=== PATIENT | male | born 1980 | race Two or more races ===

== ENCOUNTER 2016-11-17 17:02 | Emergency (ER) | payer MEDICAID, OTHER, SELFPAY ==
[~2016-11-17] VITALS: Ht 203.2 cm; Wt 83.9 kg
[2016-11-17] MEDS ORDERED: ONDANSETRON 4MG/2ML VIAL (J2405) IV ONE (18:00)
[2016-11-17] MEDS ORDERED: KETOROLAC 30 MG/ML VIAL (J1885) IV ONE (18:00)
[2016-11-17] MEDS ORDERED: NS 1,000 ML IV ONE (18:00)
[2016-11-17] MEDS ORDERED: PANTOPRAZOLE 40MG TAB (PROTONIX) PO ONE (18:00)
[2016-11-17] MEDS ORDERED: PANTOPRAZOLE 40MG INJ (PROTONIX) (C9113) IV ONE (18:30)
[2016-11-17 18:44] LABS: BASO % 0.2 % (0.0-1.0); EOS # 0.3 K/mm3 (0.0-0.50); EOS % 3.3 % (0.0-3.0); LARGE UNSTAINED CELL % 0.5 % (0.0-4.0); LYMPH # 0.4 K/mm3 (1.5-4.5); LYMPH % 4.3 % (24.0-44.0); MEAN CORPUSCULAR HEMOGLOBIN 32.7 pg (27.0-33.0); MEAN CORPUSCULAR VOLUME 96.1 fl (80.0-96.0); MONO # 0.2 K/mm3 (0.0-0.8); MONO % 2.5 % (0.0-5.0); NEUTROPHILS # 8.2 K/mm3 (1.8-7.7); NEUTROPHILS % 89.2 % (36.0-66.0); PLATELET COUNT, AUTOMATED 172 k/mm3 (150-450); WHITE BLOOD COUNT 9.2 K/mm3 (4.0-10.0)
[2016-11-17 19:14] LABS: ALBUMIN 4.4 GM/DL (3.2-5.2); ALBUMIN/GLOBULIN RATIO 1.42 (1.00-1.93); ALKALINE PHOSPHATASE 97 U/L (45-117); ALT/SGPT 190 U/L (12-78); ANION GAP 11 MEQ/L (8-16); AST/SGOT 100 U/L (15-37); BILIRUBIN,DIRECT 0.5 MG/DL (0.0-0.2); BILIRUBIN,TOTAL 1.9 MG/DL (0.2-1.0); BLOOD UREA NITROGEN 8 MG/DL (7-18); CALCIUM LEVEL 9.3 MG/DL (8.5-10.1); CARBON DIOXIDE LEVEL 25 MEQ/L (21-32); CHLORIDE LEVEL 101 MEQ/L (98-107); CREATININE FOR GFR 0.86 MG/DL (0.70-1.30); GLOMERULAR FILTRATION RATE > 60.0 (>60); GLUCOSE, FASTING 104 MG/DL (70-105); POTASSIUM SERUM 3.7 MEQ/L (3.5-5.1); SODIUM LEVEL 137 MEQ/L (136-145); TOTAL PROTEIN 7.5 GM/DL (6.4-8.2)
[2016-11-17] MEDS ORDERED: ZOFR4TAB3 PO (19:25)
[2016-11-17 19:44] VITALS: BP 145/71
== END 2016-11-17 19:47 | disposition home or self-care (01) ==
LOC: M ED 18:42
DX: K29.70 Gastritis, unspecified, without bleeding (principal); F10.20 Alcohol dependence, uncomplicated; Z87.891 Personal history of nicotine dependence; Z88.0 Allergy status to penicillin; Z87.09 Personal history of other diseases of the respiratory system
CPT/HCPCS: 80048; 80076; 81001; 83605; 83690; 85025; 96374; 96375; 99282; C9113; J1885; J2405

== ENCOUNTER → 2016-12-30 | Outpatient (CLI) | payer OTHER ==
[~2016-12-30] MED LIST: ZOFR4TAB3 PO
--- NOTE | 2016-12-31 02:29 | REP ---
Clinical: Lower back pain. Technique: AP, lateral, bilateral oblique, and coned-down views. Comparison: 08/27/2013. Findings: Alignment and lordosis maintained. Moderate degenerative disc osteophyte complex at the L3-4 level is appreciated including anterior spurring with endplate sclerosis and minimal disc space narrowing. Remainder examination appears relatively normal for age. No evidence for spondylolysis or spondylolisthesis. No acute fracture / compression injury or subluxation. Impression: Moderate degenerative disc osteophyte complex at the L3-4 level. Remainder examination appears relatively normal for age. If the patient remains symptomatic consider MRI for further investigation. Signed by Sony Lord MD 12/31/2016 02:20 A
== END ==
LOC: M RAD 08:47
PROVIDERS: ATTEND Physician Assistant
DX: M54.5 Low back pain (principal)

== ENCOUNTER 2017-12-07 20:45 | Inpatient (IN) | payer MEDICAID, OTHER, BC ==
[2017-12-07 21:32] LABS: HEMATOCRIT 37.8 % (42.0-52.0); HEMOGLOBIN 13.1 g/dl (13.5-17.5); MEAN CORPUSCULAR HEMOGLOBIN 31.8 pg (27.0-33.0); MEAN CORPUSCULAR HGB CONC 34.7 g/dl (32.0-36.5); MEAN CORPUSCULAR VOLUME 91.7 fl (80.0-96.0); PLATELET COUNT, AUTOMATED 184 10^3/uL (150-450); RED BLOOD COUNT 4.12 10^6/uL (4.30-6.10); RED CELL DISTRIBUTION WIDTH 12.7 % (11.5-14.5); WHITE BLOOD COUNT 6.8 10^3/uL (4.0-10.0)
[2017-12-07 22:14] LABS: ACETAMINOPHEN LEVEL < 2.0 UG/ML (10.0-30.0); ALBUMIN 4.2 GM/DL (3.2-5.2); ALBUMIN/GLOBULIN RATIO 1.35 (1.00-1.93); ALKALINE PHOSPHATASE 83 U/L (45-117); ALT/SGPT 186 U/L (12-78); ANION GAP 11 MEQ/L (8-16); AST/SGOT 117 U/L (7-37); BILIRUBIN,DIRECT 0.2 MG/DL (0.0-0.2); BILIRUBIN,TOTAL 0.8 MG/DL (0.2-1.0); BLOOD UREA NITROGEN 5 MG/DL (7-18); CALCIUM LEVEL 8.3 MG/DL (8.5-10.1); CARBON DIOXIDE LEVEL 25 MEQ/L (21-32); CHLORIDE LEVEL 101 MEQ/L (98-107); GLOMERULAR FILTRATION RATE > 60.0 (>60); GLUCOSE, FASTING 84 MG/DL (70-100); POTASSIUM SERUM 3.6 MEQ/L (3.5-5.1); SALICYLATE LEVEL < 1.7 MG/DL (5.0-30.0); SODIUM LEVEL 137 MEQ/L (136-145); TOTAL PROTEIN 7.3 GM/DL (6.4-8.2)
[2017-12-08] MEDS: OXAZEPAM 15 MG CAP PO (04:59)
[2017-12-08 05:05] LABS: AMPHETAMINES LEVEL URINE NEGATIVE (NEGATIVE); BARBITURATES URINE NEGATIVE (NEGATIVE); BENZODIAZEPINES URINE NEGATIVE (NEGATIVE); CANNABINOIDS URINE POSITIVE (NEGATIVE); COCAINE METABOLITE URINE NEGATIVE (NEGATIVE); METHADONE URINE NEGATIVE (NEGATIVE); OPIATES URINE NEGATIVE (NEGATIVE); PHENCYCLIDINE URINE NEGATIVE (NEGATIVE)
[2017-12-08] MEDS ORDERED: LORazepam 2 MG TAB PO (09:30)
[2017-12-08] MEDS: FOLIC ACID 1 MG TAB PO (11:45)
[2017-12-08] MEDS: MULTIVITAMINS/MINERALS THERAP 1 TAB PO (11:46)
[2017-12-08] MEDS: THIAMINE 100 MG TAB PO ×2 (11:46→20:21)
[2017-12-08] MEDS: ARIPiprazole 2 MG TAB PO ×2 (13:07→20:21)
[2017-12-08] MEDS ORDERED: IBUPROFEN 400 MG TAB PO (14:45)
[2017-12-08] MEDS ORDERED: MOM 30ML SUSPENSION UDC PO (14:45)
[2017-12-08] MEDS ORDERED: MAALOX 30 ML SUSP *UDC PO (14:45)
[2017-12-08] MEDS: traZODone 50 MG TAB PO (20:21)
[2017-12-09 06:55] LABS: HEMATOCRIT 41.8 % (42.0-52.0); HEMOGLOBIN 14.2 g/dl (13.5-17.5); MEAN CORPUSCULAR HEMOGLOBIN 31.5 pg (27.0-33.0); MEAN CORPUSCULAR VOLUME 92.7 fl (80.0-96.0); PLATELET COUNT, AUTOMATED 190 10^3/uL (150-450); RED BLOOD COUNT 4.51 10^6/uL (4.30-6.10); RED CELL DISTRIBUTION WIDTH 12.6 % (11.5-14.5); WHITE BLOOD COUNT 7.2 10^3/uL (4.0-10.0)
[2017-12-09 07:19] LABS: ALBUMIN 4.1 GM/DL (3.2-5.2); ALBUMIN/GLOBULIN RATIO 1.41 (1.00-1.93); ALKALINE PHOSPHATASE 82 U/L (45-117); ALT/SGPT 172 U/L (12-78); ANION GAP 7 MEQ/L (8-16); AST/SGOT 98 U/L (7-37); BILIRUBIN,TOTAL 1.8 MG/DL (0.2-1.0); BLOOD UREA NITROGEN 8 MG/DL (7-18); CALCIUM LEVEL 9.1 MG/DL (8.5-10.1); CARBON DIOXIDE LEVEL 28 MEQ/L (21-32); CHLORIDE LEVEL 103 MEQ/L (98-107); CREATININE FOR GFR 0.78 MG/DL (0.70-1.30); FERRITIN 214 NG/ML (26-388); GLOMERULAR FILTRATION RATE > 60.0 (>60); GLUCOSE, FASTING 81 MG/DL (70-100); IRON (FE) 146 UG/DL (65-175); PERCENT SATURATION 47.1 % (19.7-50.0); SODIUM LEVEL 138 MEQ/L (136-145); TOTAL IRON BINDING CAPACITY 310 UG/DL (250-450)
[2017-12-09 09:26] LABS: HEPATITIS B SURFACE ANTIGEN NEGATIVE (NEGATIVE)
[2017-12-09 09:53] LABS: HEPATITIS C VIRUS ABY INDEX < 0.0 INDEX (<0.8)
[2017-12-09 09:54] LABS: HEPATITIS B CORE ANTIBODY IGM NEGATIVE (NEGATIVE)
[2017-12-09 09:55] LABS: HEPATITIS A ANTIBODY IGM NEGATIVE (NEGATIVE)
[2017-12-09] MEDS: FOLIC ACID 1 MG TAB PO (11:23)
[2017-12-09] MEDS: ARIPiprazole 2 MG TAB PO ×2 (11:23→20:13)
[2017-12-09] MEDS: THIAMINE 100 MG TAB PO ×2 (11:23→20:14)
[2017-12-09] MEDS: MULTIVITAMINS/MINERALS THERAP 1 TAB PO (11:23)
[2017-12-09 11:27] LABS: FOLATE 11.9 NG/ML (>5.4); VITAMIN B12 LEVEL 1044 PG/ML (247-911)
[2017-12-09] MEDS: traZODone 50 MG TAB PO (20:14)
[2017-12-10] MEDS: THIAMINE 100 MG TAB PO (08:01)
[2017-12-10] MEDS: ARIPiprazole 2 MG TAB PO (08:01)
[2017-12-10] MEDS: FOLIC ACID 1 MG TAB PO (08:01)
[2017-12-10] MEDS: MULTIVITAMINS/MINERALS THERAP 1 TAB PO (08:01)
== END 2017-12-10 08:05 | DRG 885 ==
LOC: M ED 20:45 → M ED INP 12-08 06:08 → M PSY 12-08 08:15
PROVIDERS: Psychiatry & Neurology Psychiatry
DX: F31.60 Bipolar disorder, current episode mixed, unspecified (principal); F41.1 Generalized anxiety disorder; F10.10 Alcohol abuse, uncomplicated; F12.10 Cannabis abuse, uncomplicated; D64.9 Anemia, unspecified; R94.5 Abnormal results of liver function studies; Z79.899 Other long term (current) drug therapy; Z88.0 Allergy status to penicillin

== ENCOUNTER 2017-12-12 16:26 | Emergency (ER) | payer OTHER, MEDICAID | END 2017-12-12 17:30 | disposition home or self-care (01) | LOC: M ED 16:26 | DX: Z76.0 Encounter for issue of repeat prescription (principal); F33.9 Major depressive disorder, recurrent, unspecified; Z88.0 Allergy status to penicillin; Z79.899 Other long term (current) drug therapy | CPT/HCPCS: 99282 ==

== ENCOUNTER 2018-02-26 22:18 | Inpatient (IN) | payer MEDICAID, OTHER ==
[2018-02-26 23:15] LABS: HEMATOCRIT 38.1 % (42.0-52.0); HEMOGLOBIN 13.2 g/dl (13.5-17.5); MEAN CORPUSCULAR HEMOGLOBIN 31.3 pg (27.0-33.0); MEAN CORPUSCULAR HGB CONC 34.6 g/dl (32.0-36.5); MEAN CORPUSCULAR VOLUME 90.3 fl (80.0-96.0); PLATELET COUNT, AUTOMATED 236 10^3/uL (150-450); RED BLOOD COUNT 4.22 10^6/uL (4.30-6.10); RED CELL DISTRIBUTION WIDTH 12.5 % (11.5-14.5); WHITE BLOOD COUNT 9.3 10^3/uL (4.0-10.0)
[2018-02-26 23:35] LABS: AMPHETAMINES LEVEL URINE NEGATIVE (NEGATIVE); BARBITURATES URINE NEGATIVE (NEGATIVE); BENZODIAZEPINES URINE NEGATIVE (NEGATIVE); CANNABINOIDS URINE POSITIVE (NEGATIVE); COCAINE METABOLITE URINE NEGATIVE (NEGATIVE); METHADONE URINE NEGATIVE (NEGATIVE); OPIATES URINE NEGATIVE (NEGATIVE); PHENCYCLIDINE URINE NEGATIVE (NEGATIVE)
[2018-02-26 23:44] LABS: ALBUMIN 4.2 GM/DL (3.2-5.2); ALBUMIN/GLOBULIN RATIO 1.24 (1.00-1.93); ALKALINE PHOSPHATASE 85 U/L (45-117); ALT/SGPT 51 U/L (12-78); ANION GAP 10 MEQ/L (8-16); AST/SGOT 40 U/L (7-37); BILIRUBIN,DIRECT 0.3 MG/DL (0.0-0.2); BILIRUBIN,TOTAL 1.1 MG/DL (0.2-1.0); BLOOD UREA NITROGEN 8 MG/DL (7-18); CALCIUM LEVEL 8.9 MG/DL (8.5-10.1); CARBON DIOXIDE LEVEL 25 MEQ/L (21-32); CHLORIDE LEVEL 103 MEQ/L (98-107); CREATININE FOR GFR 0.75 MG/DL (0.70-1.30); ETHYL ALCOHOL (ETHANOL) 0.249 % (0.000-0.010); GLOMERULAR FILTRATION RATE > 60.0 (>60); GLUCOSE, FASTING 90 MG/DL (70-100); POTASSIUM SERUM 3.9 MEQ/L (3.5-5.1); SALICYLATE LEVEL < 1.7 MG/DL (5.0-30.0); SODIUM LEVEL 138 MEQ/L (136-145); TOTAL PROTEIN 7.6 GM/DL (6.4-8.2)
[2018-02-26 23:49] LABS: ACETAMINOPHEN LEVEL < 2.0 UG/ML (10.0-30.0)
[2018-02-27] MEDS ORDERED: LORazepam 1 MG TAB PO (12:45)
[2018-02-27] MEDS ORDERED: LORazepam 2 MG TAB PO (12:45)
[2018-02-27] MEDS ORDERED: MOM 30ML SUSPENSION UDC PO (12:45)
[2018-02-27] MEDS ORDERED: MAALOX 30 ML SUSP *UDC PO (12:45)
[2018-02-27] MEDS: MULTIVITAMINS/MINERALS THERAP 1 TAB PO (16:51)
[2018-02-27] MEDS: THIAMINE 100 MG TAB PO ×2 (16:51→21:27)
[2018-02-27] MEDS: SERTRALINE HCL 50 MG TAB PO (16:51)
[2018-02-27] MEDS: FOLIC ACID 1 MG TAB PO (16:51)
[2018-02-27] MEDS: MIRTAZAPINE 15 MG TAB PO (21:27)
[2018-02-28] MEDS: MULTIVITAMINS/MINERALS THERAP 1 TAB PO (08:17)
[2018-02-28] MEDS: FOLIC ACID 1 MG TAB PO (08:17)
[2018-02-28] MEDS: SERTRALINE HCL 50 MG TAB PO (08:17)
[2018-02-28] MEDS: THIAMINE 100 MG TAB PO ×2 (08:18→20:18)
[2018-02-28] MEDS: NALTREXONE 50 MG TAB PO (09:52)
[2018-02-28] MEDS: QUEtiapine FUMARATE 50 MG TAB PO (20:18)
[2018-02-28] MEDS: MIRTAZAPINE 15 MG TAB PO (20:18)
[2018-02-28] MEDS: traZODone 50 MG TAB PO (22:07)
[2018-03-01 06:47] LABS: BASO # 0.1 10^3/uL (0.0-0.2); BASO % 0.8 % (0.0-1.0); EOS # 1.1 10^3/uL (0.0-0.50); EOS % 13.6 % (0.0-3.0); HEMATOCRIT 41.6 % (42.0-52.0); HEMOGLOBIN 14.1 g/dl (13.5-17.5); IMMATURE GRANULOCYTE % 0.3 % (0-3.0); LYMPH # 2.5 10^3/uL (1.5-4.5); MEAN CORPUSCULAR HEMOGLOBIN 31.1 pg (27.0-33.0); MEAN CORPUSCULAR HGB CONC 33.9 g/dl (32.0-36.5); MEAN CORPUSCULAR VOLUME 91.8 fl (80.0-96.0); MONO # 0.6 10^3/uL (0.0-0.8); MONO % 7.3 % (0.0-5.0); NEUTROPHILS # 3.8 10^3/uL (1.8-7.7); PLATELET COUNT, AUTOMATED 210 10^3/uL (150-450); RED BLOOD COUNT 4.53 10^6/uL (4.30-6.10); RED CELL DISTRIBUTION WIDTH 12.7 % (11.5-14.5)
[2018-03-01 07:20] LABS: ALBUMIN/GLOBULIN RATIO 1.25 (1.00-1.93); ALKALINE PHOSPHATASE 86 U/L (45-117); ALT/SGPT 44 U/L (12-78); ANION GAP 8 MEQ/L (8-16); AST/SGOT 33 U/L (7-37); BILIRUBIN,TOTAL 1.5 MG/DL (0.2-1.0); BLOOD UREA NITROGEN 9 MG/DL (7-18); CALCIUM LEVEL 9.5 MG/DL (8.5-10.1); CARBON DIOXIDE LEVEL 30 MEQ/L (21-32); CHLORIDE LEVEL 105 MEQ/L (98-107); CREATININE FOR GFR 0.88 MG/DL (0.70-1.30); GLOMERULAR FILTRATION RATE > 60.0 (>60); GLUCOSE, FASTING 100 MG/DL (70-100); POTASSIUM SERUM 4.3 MEQ/L (3.5-5.1); SODIUM LEVEL 143 MEQ/L (136-145); TOTAL PROTEIN 7.2 GM/DL (6.4-8.2)
[2018-03-01] MEDS: NALTREXONE 50 MG TAB PO (08:11)
[2018-03-01] MEDS: FOLIC ACID 1 MG TAB PO (08:11)
[2018-03-01] MEDS: MULTIVITAMINS/MINERALS THERAP 1 TAB PO (08:11)
[2018-03-01] MEDS: THIAMINE 100 MG TAB PO ×2 (08:11→20:36)
[2018-03-01] MEDS: SERTRALINE HCL 50 MG TAB PO (08:11)
[2018-03-01] MEDS: MIRTAZAPINE 15 MG TAB PO (20:35)
[2018-03-01] MEDS: QUEtiapine FUMARATE 50 MG TAB PO (20:36)
[2018-03-01] MEDS: traZODone 50 MG TAB PO (21:30)
[2018-03-02] MEDS: ACETAMINOPHEN TAB 650MG DOSE (2X325MG) PO (07:44)
[2018-03-02] MEDS: SERTRALINE HCL 50 MG TAB PO (08:06)
[2018-03-02] MEDS: NALTREXONE 50 MG TAB PO (08:06)
[2018-03-02] MEDS: MULTIVITAMINS/MINERALS THERAP 1 TAB PO (08:06)
[2018-03-02] MEDS: FOLIC ACID 1 MG TAB PO (08:06)
== END 2018-03-02 12:00 | disposition home or self-care (01) | DRG 885 ==
LOC: M PSY 02-28 15:35 → M ED 22:18 → M ED INP 02-27 12:34 → M PSY 02-27 15:30
DX: F33.1 Major depressive disorder, recurrent, moderate (principal); R45.851 Suicidal ideations; F41.1 Generalized anxiety disorder; F10.10 Alcohol abuse, uncomplicated; F12.90 Cannabis use, unspecified, uncomplicated; Z88.0 Allergy status to penicillin; D64.9 Anemia, unspecified

== ENCOUNTER 2018-03-02 22:47 | Emergency (ER) | payer OTHER, MEDICAID ==
[2018-03-03] MEDS: KETOROLAC 30 MG/ML VIAL (J1885) IV (00:43)
[2018-03-03 00:50] LABS: BASO # 0.1 10^3/uL (0.0-0.2); BASO % 0.5 % (0.0-1.0); EOS # 0.6 10^3/uL (0.0-0.50); EOS % 5.1 % (0.0-3.0); HEMATOCRIT 37.5 % (42.0-52.0); IMMATURE GRANULOCYTE % 0.4 % (0-3.0); LYMPH # 2.2 10^3/uL (1.5-4.5); LYMPH % 19.9 % (24.0-44.0); MEAN CORPUSCULAR HEMOGLOBIN 31.6 pg (27.0-33.0); MEAN CORPUSCULAR HGB CONC 34.7 g/dl (32.0-36.5); MONO # 0.8 10^3/uL (0.0-0.8); MONO % 7.4 % (0.0-5.0); NEUTROPHILS # 7.4 10^3/uL (1.8-7.7); NEUTROPHILS % 66.7 % (36.0-66.0); PLATELET COUNT, AUTOMATED 189 10^3/uL (150-450); RED BLOOD COUNT 4.12 10^6/uL (4.30-6.10); RED CELL DISTRIBUTION WIDTH 12.6 % (11.5-14.5); WHITE BLOOD COUNT 11.2 10^3/uL (4.0-10.0)
[2018-03-03 01:11] LABS: ANION GAP 5 MEQ/L (8-16); BLOOD UREA NITROGEN 6 MG/DL (7-18); CALCIUM LEVEL 9.4 MG/DL (8.5-10.1); CARBON DIOXIDE LEVEL 32 MEQ/L (21-32); CHLORIDE LEVEL 103 MEQ/L (98-107); CREATININE FOR GFR 0.91 MG/DL (0.70-1.30); GLOMERULAR FILTRATION RATE > 60.0 (>60); GLUCOSE, FASTING 89 MG/DL (70-100); POTASSIUM SERUM 3.4 MEQ/L (3.5-5.1); SODIUM LEVEL 140 MEQ/L (136-145)
[2018-03-03] MEDS: diphenhydrAMINE INJ 50MG/ML VIAL (J1200) IV (01:35)
[2018-03-03] MEDS: NS 1,000 ML IV (01:35)
== END 2018-03-03 02:25 | disposition home or self-care (01) ==
LOC: M ED 22:47
DX: R20.2 Paresthesia of skin (principal); R07.89 Other chest pain; T43.595A Adverse effect of other antipsychotics and neuroleptics, initial encounter; X58.XXXA Exposure to other specified factors, initial encounter; Y92.89 Other specified places as the place of occurrence of the external cause; I45.19 Other right bundle-branch block; K74.60 Unspecified cirrhosis of liver; Z79.899 Other long term (current) drug therapy; Z88.0 Allergy status to penicillin; Z87.891 Personal history of nicotine dependence
CPT/HCPCS: J1200

== ENCOUNTER 2019-08-16 02:49 | Emergency (ER) | payer OTHER, SELFPAY ==
[~2019-08-16] VITALS: Ht 203.2 cm; Wt 81.8 kg
[~2019-08-16 02:49] MED LIST changes: +ABIL1TAB13 PO; +ARIP1TAB4 PO; +FOLI1TAB11 PO; +IRON50TA PO; +MELA5TAB20 PO; +MIRT15TA3 PO; +NALT50TA4 PO; +QUET5TAB PO; +REME15TA PO; +SERT-141 PO; +SERT50TA29 PO; +THIA100TA PO; +TRAZ1TAB10 PO; +VITMTA PO; +ZOFR4TAB14 PO; -ZOFR4TAB3 PO; +ZOLO50TA PO
[2019-08-16 03:16] LABS: BASO # 0.1 10^3/uL (0.0-0.2); EOS # 0.7 10^3/uL (0.0-0.5); EOS % 8.8 % (0.0-3.0); HEMATOCRIT 39.8 % (42.0-52.0); HEMOGLOBIN 13.1 g/dl (13.5-17.5); LYMPH # 2.8 10^3/uL (1.5-5.0); LYMPH % 34.6 % (24.0-44.0); MEAN CORPUSCULAR HEMOGLOBIN 31.3 pg (27.0-33.0); MEAN CORPUSCULAR HGB CONC 32.9 g/dl (32.0-36.5); MONO # 0.7 10^3/uL (0.0-0.8); MONO % 8.5 % (0.0-5.0); NEUTROPHILS # 3.8 10^3/uL (1.5-8.5); NEUTROPHILS % 46.9 % (36.0-66.0); PLATELET COUNT, AUTOMATED 214 10^3/uL (150-450); RED BLOOD COUNT 4.19 10^6/uL (4.30-6.10); WHITE BLOOD COUNT 8.1 10^3/uL (4.0-10.0)
[2019-08-16 03:43] LABS: BLOOD UREA NITROGEN 6 MG/DL (7-18); CALCIUM LEVEL 8.6 MG/DL (8.5-10.1); CARBON DIOXIDE LEVEL 27 MEQ/L (21-32); CHLORIDE LEVEL 105 MEQ/L (98-107); CK-MB VALUE MASS 4.6 NG/ML (<3.6); CPK CREATINE PHOSPHOKINASE 284 U/L (39-308); CREATININE FOR GFR 0.84 MG/DL (0.70-1.30); GLOMERULAR FILTRATION RATE > 60.0 (>60); GLUCOSE, FASTING 108 MG/DL (70-100); MB/CK RELATIVE INDEX 1.62 (< OR =4); POTASSIUM SERUM 3.4 MEQ/L (3.5-5.1); SODIUM LEVEL 140 MEQ/L (136-145); TROPONIN I < 0.02 NG/ML (< 0.10)
[2019-08-16 05:08] VITALS: BP 122/78
--- NOTE | 2019-08-16 05:20 | REP ---
Clinical: Acute chest pain . Comparison: 12/08/2017 . Findings: The mediastinum and cardiac silhouette are stable and within normal limits for portable technique. The lung armijo are clear without acute consolidation, effusion, or pneumothorax. Skeletal structures are intact. Impression: No acute cardiopulmonary process appreciated. Electronically Signed by Sony Lord MD 08/16/2019 05:12 A
--- NOTE | 2019-08-16 07:57 | ECGEPIP ---
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
[2019-08-16] MEDS ORDERED: NAPR-837 PO (17:48)
== END 2019-08-16 05:13 | disposition left against medical advice (07) ==
LOC: M ED 02:49
DX: R07.9 Chest pain, unspecified (principal); Z53.21 Procedure and treatment not carried out due to patient leaving prior to being seen by health care provider; Z87.09 Personal history of other diseases of the respiratory system; Z88.0 Allergy status to penicillin

== ENCOUNTER 2019-08-16 14:19 | Emergency (ER) | payer OTHER ==
[~2019-08-16] VITALS: Ht 203.2 cm; Wt 82.0 kg
[2019-08-16 17:21] LABS: BASO # 0.1 10^3/uL (0.0-0.2); EOS # 0.7 10^3/uL (0.0-0.5); EOS % 8.8 % (0.0-3.0); HEMATOCRIT 45.5 % (42.0-52.0); LYMPH # 2.3 10^3/uL (1.5-5.0); MEAN CORPUSCULAR HEMOGLOBIN 31.4 pg (27.0-33.0); MEAN CORPUSCULAR VOLUME 95.4 fl (80.0-96.0); MONO # 0.7 10^3/uL (0.0-0.8); MONO % 8.4 % (0.0-5.0); NEUTROPHILS # 4.1 10^3/uL (1.5-8.5); NEUTROPHILS % 52.5 % (36.0-66.0); PLATELET COUNT, AUTOMATED 255 10^3/uL (150-450); RED BLOOD COUNT 4.77 10^6/uL (4.30-6.10); WHITE BLOOD COUNT 7.8 10^3/uL (4.0-10.0)
[2019-08-16 17:44] LABS: ALBUMIN 4.2 GM/DL (3.2-5.2); ALT/SGPT 52 U/L (12-78); BILIRUBIN,DIRECT 0.3 MG/DL (0.0-0.2); BLOOD UREA NITROGEN 6 MG/DL (7-18); CALCIUM LEVEL 9.4 MG/DL (8.5-10.1); CARBON DIOXIDE LEVEL 30 MEQ/L (21-32); CHLORIDE LEVEL 106 MEQ/L (98-107); CK-MB VALUE MASS 3.3 NG/ML (<3.6); CPK CREATINE PHOSPHOKINASE 215 U/L (39-308); CREATININE FOR GFR 0.77 MG/DL (0.70-1.30); GLOMERULAR FILTRATION RATE > 60.0 (>60); GLUCOSE, FASTING 89 MG/DL (70-100); MB/CK RELATIVE INDEX 1.53 (< OR =4); POTASSIUM SERUM 4.1 MEQ/L (3.5-5.1); SODIUM LEVEL 140 MEQ/L (136-145); TOTAL PROTEIN 7.3 GM/DL (6.4-8.2); TROPONIN I < 0.02 NG/ML (< 0.10)
[2019-08-16 17:47] VITALS: BP 122/69
[2019-08-16] MEDS ORDERED: NAPR-837 PO (17:48)
--- NOTE | 2019-08-16 18:03 | REPVR ---
PROCEDURE INFORMATION: Exam: US Abdomen Limited, Right Upper Quadrant Exam date and time: 08/16/2019 5:32 PM Age: 39 years old Clinical indication: Abdominal pain; Additional info: Right flank pain TECHNIQUE: Imaging protocol: Real-time ultrasound of the abdomen with image documentation. Examination was focused on the right upper quadrant. COMPARISON: LIVER US 12/09/2017 9:32 AM FINDINGS: Liver: The liver demonstrates increased echogenicity with decreased visualization of periportal fat without sound attenuation. Gallbladder: The gallbladder wall measures 2.0 mm. No gallstones. Common bile duct: The common bile duct measures 3.1 mm. No ductal calculi as visualized. Pancreas: The pancreas is normal. No pancreatic mass or ductal dilatation identified. Right kidney: The right kidney measures 10.1 x 4.8 by 5.1 cm. Unremarkable. A brief color Doppler examination of the right kidney was performed showing normal color shifts. Portal venous: The main portal vein measures 14.9 mm. Other vasculature: Prominence of the intrahepatic veins. IMPRESSION: 1. Fatty infiltration of the liver. 2. Possible portal venous hypertension. Clinical correlation is recommended. 3. Possible elevated systemic venous pressures. Clinical correlation is recommended. Electronically signed by: Abhishek Weir On 08/16/2019 18:03:21 PM
--- NOTE | 2019-08-16 20:10 | ED PDOC ---
Post-Departure Follow-Up siomara lackey faxed formal report of us for fu Mirna Meredith MD Aug 16, 2019 20:10
== END 2019-08-16 17:56 | disposition home or self-care (01) ==
LOC: M ED 14:19
DX: R10.9 Unspecified abdominal pain (principal); R09.1 Pleurisy; K76.0 Fatty (change of) liver, not elsewhere classified; R93.2 Abnormal findings on diagnostic imaging of liver and biliary tract; F17.210 Nicotine dependence, cigarettes, uncomplicated; Z88.0 Allergy status to penicillin; Z79.899 Other long term (current) drug therapy

== ENCOUNTER 2019-09-07 17:03 | Emergency (ER) | payer OTHER ==
[~2019-09-07] VITALS: Ht 203.2 cm; Wt 82.5 kg
[~2019-09-07 17:03] MED LIST changes: +NAPR-837 PO
--- NOTE | 2019-09-07 17:46 | REP ---
clinical: Chest pain chronic . Comparison: 08/16/2019 . Technique: PA and lateral. Findings: The mediastinum and cardiac silhouette are normal. The lung armijo are clear and without acute consolidation, effusion, or pneumothorax. Postsurgical changes at the left apex again noted. The skeletal structures are intact and normal. Impression: 1. No acute cardiopulmonary process. Electronically Signed by Sony Lord MD 09/07/2019 05:37 P
[2019-09-07] MEDS ORDERED: KETO10TAB PO (19:56)
[2019-09-07] MEDS ORDERED: KETOROLAC 60 MG/2 ML VIAL (J1885) IM ONE (20:00)
[2019-09-07 20:14] VITALS: BP 108/64
--- NOTE | 2019-09-07 20:44 | ECGEPIP ---
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
== END 2019-09-07 20:41 | disposition left against medical advice (07) ==
LOC: M ED 17:03
DX: R09.1 Pleurisy (principal); R94.31 Abnormal electrocardiogram [ECG] [EKG]; F17.210 Nicotine dependence, cigarettes, uncomplicated; Z88.0 Allergy status to penicillin
CPT/HCPCS: 71046; 93005; 93041; 94760; 96372; 99285; J1885

== ENCOUNTER 2019-10-13 14:03 | Emergency (ER) | payer OTHER ==
[~2019-10-13] VITALS: Ht 203.2 cm; Wt 80.8 kg
[~2019-10-13 14:03] MED LIST changes: +KETO10TAB PO
[2019-10-13] MEDS ORDERED: CLIN300C5 (14:08)
[2019-10-13] MEDS ORDERED: KETOROLAC 60 MG/2 ML VIAL (J1885) IM ONE (14:45)
[2019-10-13] MEDS ORDERED: KETO10TAB PO (15:55)
[2019-10-13] MEDS ORDERED: CYCL5TAB PO (15:55)
[2019-10-13 16:01] VITALS: BP 106/58
--- NOTE | 2019-10-13 16:35 | REP ---
CHEST, TWO VIEWS: Two views of the chest are performed and compared to prior study of 09/07/2019. No acute infiltrate is seen. There is chronic left apical pleural thickening and left basilar scarring. The heart is normal in size. Mediastinal silhouette is unremarkable and unchanged. IMPRESSION: No acute pulmonary disease. Electronically Signed by James Gaines MD 10/13/2019 05:01 P
== END 2019-10-13 16:34 | disposition home or self-care (01) ==
LOC: M ED 14:03
DX: S29.012A Strain of muscle and tendon of back wall of thorax, initial encounter (principal); W01.0XXA Fall on same level from slipping, tripping and stumbling without subsequent striking against object, initial encounter; Y92.9 Unspecified place or not applicable; F17.210 Nicotine dependence, cigarettes, uncomplicated; Z88.0 Allergy status to penicillin; Z88.1 Allergy status to other antibiotic agents; Z79.899 Other long term (current) drug therapy
CPT/HCPCS: 71046; 96372; 99283; J1885

== ENCOUNTER 2019-11-02 19:53 | Emergency (ER) | payer OTHER ==
[~2019-11-02] VITALS: Ht 203.2 cm; Wt 80.7 kg
[~2019-11-02 19:53] MED LIST changes: +CLIN300C5; +CYCL5TAB PO
[2019-11-02] MEDS ORDERED: LIDOCAINE 5% (LIDODERM) PATCH TD ONE (20:30)
[2019-11-02] MEDS ORDERED: methylPREDNISolone INJ 125 MG/2 ML VIAL (J2930) IM ONE (20:30)
[2019-11-02] MEDS ORDERED: KETOROLAC 60 MG/2 ML VIAL (J1885 PER 15MG) IM ONE (20:30)
[2019-11-02] MEDS ORDERED: **NOTE PATIENT COMMENT** MISC XX SCH (21:00)
[2019-11-02 21:05] VITALS: BP 110/75
[2019-11-02] MEDS ORDERED: CYCL-707 PO (21:07)
[2019-11-02] MEDS ORDERED: MEDR4PAK PO (21:07)
== END 2019-11-02 21:20 | disposition home or self-care (01) ==
LOC: M ED 19:53
DX: S39.012A Strain of muscle, fascia and tendon of lower back, initial encounter (principal); X58.XXXA Exposure to other specified factors, initial encounter; Y92.89 Other specified places as the place of occurrence of the external cause; Y93.9 Activity, unspecified; Y99.0 Civilian activity done for income or pay; F17.200 Nicotine dependence, unspecified, uncomplicated; Z88.0 Allergy status to penicillin
CPT/HCPCS: 96372; 99283; J1885; J2930

== ENCOUNTER 2019-11-16 19:29 | Emergency (ER) | payer OTHER ==
[~2019-11-16] VITALS: Ht 203.2 cm; Wt 88.5 kg
[~2019-11-16 19:29] MED LIST changes: +CYCL-707 PO; +MEDR4PAK PO
[2019-11-16] MEDS ORDERED: KETOROLAC 30 MG/ML 1ML VIAL IM ONE (20:15)
[2019-11-16] MEDS ORDERED: ACETAMINOPHEN TAB 650MG DOSE (2X325MG) PO ONE (20:15)
[2019-11-16] MEDS ORDERED: CYCL-707 PO (21:07)
[2019-11-16] MEDS ORDERED: CYCLOBENZAPRINE 10MG TABLET PO ONE (21:15)
[2019-11-16 21:16] VITALS: BP 130/76
== END 2019-11-16 21:18 | disposition home or self-care (01) ==
LOC: M ED 19:29
DX: M54.2 Cervicalgia (principal); M62.838 Other muscle spasm; F17.200 Nicotine dependence, unspecified, uncomplicated; Z88.0 Allergy status to penicillin; Z91.81 History of falling

== ENCOUNTER 2019-11-30 23:30 | Inpatient (IN) | payer MEDICAID, OTHER, SELFPAY ==
[~2019-11-30] VITALS: Ht 203.2 cm; Wt 76.7 kg
[2019-12-01] MEDS ORDERED: TRAM50TA2 PO ×2 (00:01→06:50)
[2019-12-01 00:39] LABS: HEMATOCRIT 44.9 % (42.0-52.0); HEMOGLOBIN 15.5 g/dl (13.5-17.5); MEAN CORPUSCULAR HEMOGLOBIN 32.2 pg (27.0-33.0); MEAN CORPUSCULAR HGB CONC 34.5 g/dl (32.0-36.5); MEAN CORPUSCULAR VOLUME 93.2 fl (80.0-96.0); PLATELET COUNT, AUTOMATED 296 10^3/uL (150-450); RED BLOOD COUNT 4.82 10^6/uL (4.30-6.10); WHITE BLOOD COUNT 14.8 10^3/uL (4.0-10.0)
[2019-12-01 01:09] LABS: ACETAMINOPHEN LEVEL < 2.0 UG/ML (10.0-30.0); ALBUMIN 4.5 GM/DL (3.2-5.2); ALT/SGPT 43 U/L (12-78); BILIRUBIN,DIRECT 0.2 MG/DL (0.0-0.2); BILIRUBIN,TOTAL 0.5 MG/DL (0.2-1.0); BLOOD UREA NITROGEN 5 MG/DL (7-18); CALCIUM LEVEL 8.9 MG/DL (8.5-10.1); CARBON DIOXIDE LEVEL 25 MEQ/L (21-32); CHLORIDE LEVEL 104 MEQ/L (98-107); CREATININE FOR GFR 0.82 MG/DL (0.70-1.30); ETHYL ALCOHOL (ETHANOL) 0.183 % (0.000-0.010); GLOMERULAR FILTRATION RATE > 60.0 (>60); GLUCOSE, FASTING 86 MG/DL (70-100); POTASSIUM SERUM 4.1 MEQ/L (3.5-5.1); SALICYLATE LEVEL 3.7 MG/DL (5.0-30.0); SODIUM LEVEL 137 MEQ/L (136-145); TOTAL PROTEIN 8.1 GM/DL (6.4-8.2)
[2019-12-01 02:58] LABS: AMPHETAMINES LEVEL URINE NEGATIVE (NEGATIVE); BARBITURATES URINE NEGATIVE (NEGATIVE); BENZODIAZEPINES URINE NEGATIVE (NEGATIVE); CANNABINOIDS URINE POSITIVE (NEGATIVE); COCAINE METABOLITE URINE NEGATIVE (NEGATIVE); METHADONE URINE NEGATIVE (NEGATIVE); OPIATES URINE NEGATIVE (NEGATIVE); PHENCYCLIDINE URINE NEGATIVE (NEGATIVE)
[2019-12-01] MEDS ORDERED: CYCLOBENZAPRINE 10MG TABLET PO ONE ×2 (06:15→13:30)
[2019-12-01] MEDS ORDERED: traMADol 50 MG TAB PO ONE ×2 (06:15→13:30)
[2019-12-01] MEDS ORDERED: CYCL-707 PO (06:50)
[2019-12-01] MEDS ORDERED: MOM 30ML SUSPENSION UDC PO PRN (17:00)
[2019-12-01] MEDS ORDERED: MAALOX 30 ML SUSP *UDC PO PRN (17:00)
[2019-12-01 17:26] VITALS: BP 121/87
[2019-12-01] MEDS: ACETAMINOPHEN TAB 650MG DOSE (2X325MG) PO PRN (17:31)
[2019-12-01] MEDS: traMADol 50 MG TAB PO PRN (19:56)
[2019-12-01] MEDS: CYCLOBENZAPRINE 10MG TABLET PO PRN (19:56)
[2019-12-02 06:00] VITALS: BP 141/65
[2019-12-02] MEDS: CYCLOBENZAPRINE 10MG TABLET PO PRN ×3 (06:20→20:09)
[2019-12-02] MEDS: traMADol 50 MG TAB PO PRN ×2 (06:20→14:06)
--- NOTE | 2019-12-02 09:10 | MHHPEPDOC ---
[facility] History & Physical History and Physical DATE OF ADMISSION: December 01, 2019 at 16:56 New Patient Osvaldo Goldberg MRN: N/A Date of : N/A Date of Service: 12/02/2019 Chief Complaint "I want to hit everyone." History of Present Illness The patient a 39-year-old man with a history of reported depression presents after reporting that he became increasingly more irritated and has started drinking alcohol again. He reported that he became more depressed, anxious and angry with others. He reported that he was frightened about this, had stopped his medications after being admitted in the past. He reported that he became more fatigued and had loss of interest, becoming easily irritated, wanting to fight various individuals and he brought himself in for treatment. Review Of Systems Depression: As above. Anxiety: As above. Nano: The patient denies any episodes of euphoria/dysphoria associated with decreased need for sleep, hedonism, talkatively or impulsivity lasting longer th an 5 days. Psychotic: The patient denies any experiences of auditory or visual hallucinations. They deny any episodes of paranoia or delusional thinking in the past Trauma: The patient denies any traumatic events associated with nightmares or intrusive thoughts. Borderline: Not screened at this time. Past Psychiatric History Has a history of reported alcohol problems and anxiety, hospitalized last in 2018, previously on sertraline and risperidone, no current followup, no notable history of suicide. Allergies Please see below. Family Psychiatric History The patient denies/is unaware any history of mental health history including addictions and suicide. Social History The patient was born in the local area. Reportedly, father was in the . His parents were when he was young, graduated high school, was in the [employer] for short time, has a poor relationship with mother, has 2 current sister but is generally estranged. Substance Abuse History Has a history of significant alcohol use and DUIs. Has been [place] [facility] [place] other [place]abs in the past. Medical History Patient has no significant past medical history. Mental Status Examination General: Well dressed with good hygiene Speech: Spontaneous and fluid Thought processes: Linear and logical MSK: Smooth and coordinated gait, no signs of tremors or involuntary orofacial movements Thought content: Future orientated Abstract reasoning, and computation: Intact Description of associations: Intact Description of abnormal or psychotic thoughts: Denies any suicidal or homicidal ideation. Denies any auditory or visual hallucinations. Does not appear to be responding to internal stimuli. Does not appear to be endorsing any bizarre or paranoid ideation. Judgment: Fair. Insight: fair Orientation: Alert and orientated 3 Cognition: Grossly normal Recent and remote memory: Intact Attention span and concentration: Intact Fund of knowledge: Adequate Mood: "okay" Affect: Mildly dysthymic. Diagnoses Unspecified depressive disorder. Unsure if substance related. Unspecified anxiety. Alcohol use disorder, severe. Assessment and Plan Unspecified depressive disorder/anxiety: Restart patient's sertraline and Abilify 25 mg/2 mg. Alcohol use disorder: CIWA at this time. Disposition Patient will need to be retained further for treatment at this time due to significant agitation. Problem List 1. Risk for aggression. 2. Inappropriate coping. 3. Substance abuse. Initial Treatment Plan 1. Patient was admitted on a 9.39 legal status. 2. Complete history was obtained. 3. With patients permission, family will be contacted and database will be expanded. 4. Patients medication regimen will be reviewed and changed accordingly. 5. Patient will be provided with protected environment. 6. Patient will be treated with individual, group, and milieu therapies. 7. Patient will receive supportive psych-education. 8. Discharge planning will commence immediately. 9. Outpatient follow-up treatment will be strongly recommended. 10. The initial treatment plan will focus initially on: Estimated Length Of Stay 3 days. Time Spent 70 minutes with greater than 50% of time spent on counseling/coordination of care. Thursday Vital Signs Vital Signs Date Time Temp Pulse Resp B/P (MAP) Pulse Ox O2 Delivery O2 Flow Rate FiO2 12/02/19 08:00 18 12/02/19 06:00 97.6 70 141/65 (90) 98 Room Air Medications Scheduled PRN Cyclobenzaprine HCl (Cyclobenzaprine HCl) 10 Mg Tablet, 10 MG PO TID PRN for MUSCLE SPASMS, (Reported) Tramadol HCl (Tramadol HCl) 50 Mg Tablet, 50 MG PO Q6H PRN for PAIN, (Reported) Allergies Coded Allergies: Penicillins (Verified Allergy, Intermediate, HIVES, 08/16/19) HIVES amoxicillin (Verified Allergy, Intermediate, hives, 08/16/19) PREM DICK DO December 02, 2019 09:10
[2019-12-02] MEDS ORDERED: SERTRALINE HCL 25 MG TABLET PO ONE (11:00)
[2019-12-02 16:00] VITALS: BP 125/66
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
[2019-12-02] MEDS: ARIPiprazole 2 MG TAB PO SCH (20:08)
[2019-12-02] MEDS: traZODone 50 MG TAB PO PRN (20:09)
[2019-12-03] MEDS: CYCLOBENZAPRINE 10MG TABLET PO PRN ×3 (06:34→20:09)
[2019-12-03] MEDS: traMADol 50 MG TAB PO PRN ×3 (06:35→18:34)
[2019-12-03 07:04] VITALS: BP 112/68
[2019-12-03] MEDS: SERTRALINE HCL 25 MG TABLET PO SCH (08:21)
[2019-12-03 16:11] VITALS: BP 122/72
[2019-12-03] MEDS: ARIPiprazole 2 MG TAB PO SCH (20:08)
[2019-12-03] MEDS: traZODone 50 MG TAB PO PRN (20:09)
[2019-12-04] MEDS: traMADol 50 MG TAB PO PRN ×3 (06:08→18:30)
[2019-12-04] MEDS: CYCLOBENZAPRINE 10MG TABLET PO PRN ×3 (06:08→20:22)
[2019-12-04 06:20] VITALS: BP 128/67
--- NOTE | 2019-12-04 07:51 | ECHO ---
DATE OF PROCEDURE: 12/03/2019 DATE OF : 1980 AGE: 39 PATIENT LOCATION: Room 2108 REFERRING PROVIDER: Dr. Marilyn Mckeon REASON FOR THE STUDY: Heart murmur. 2-D MEASUREMENTS: IVS: 1.1 cm LV: 4.8 cm LVPW: 1.1 cm LA: 2.6 cm Aorta: 3.3 cm RV: 3.5 cm IVC: 1.4 cm DOPPLER MEASUREMENTS: Peak velocity across the aortic valve: 1.3 m/sec Peak velocity across the LVOT: 1.1 m/sec Mitral E: 5.9., mitral A: 0.83 with a ratio of 0.7 Maximum tricuspid valve velocity: 2.1 m/s 2-D COMMENTS: 1. Normal left ventricular size, wall thickness, and normal global left ventricular systolic function. The estimated ventricular systolic ejection fraction is 60-65%. 2. Normal left atrium. Normal right atrium and right ventricle. 3. The atrial septum appeared to be normal without evidence of defect or shunt. 4. Normal aortic root. 5. No pericardial effusion seen. 6. Aortic valve, mitral valve, tricuspid valve, and pulmonic valve appeared to be normal. The proximal pulmonary artery branches were not well visualized. DOPPLER: It detects trace aortic regurgitation, trace tricuspid regurgitation. The calculated pulmonary artery systolic pressure was normal. Abnormal relaxation pattern was noted across the mitral valve leaflets as well as the mitral annulus consistent with features of grade 1 left ventricular diastolic dysfunction. IMPRESSION: 1. Normal global left ventricular systolic function. There are some features of left ventricular diastolic dysfunction manifested by abnormal relaxation. 2. Trace mitral regurgitation. The ascending aorta does not appear to be dilated. 3. Trace tricuspid regurgitation with a normal calculated pulmonary artery systolic pressure.
[2019-12-04] MEDS: SERTRALINE HCL 25 MG TABLET PO SCH (08:01)
[2019-12-04] MEDS: ACETAMINOPHEN TAB 650MG DOSE (2X325MG) PO PRN (09:04)
--- NOTE | 2019-12-04 09:32 | MHIPN ---
DATE: 12/03/2019 The patient today tells me today, " I am excellent". He says that he slept good. He feels that being back on his medications is helping him to feel better and that he would be better able to cope. MENTAL STATUS EXAMINATION: Patient is alert, oriented times three. Eye contact is fair. Verbally spontaneous. There is no formal thought disorder noted. He says that he is doing "excellent". Affect is appropriate to mood. He is denying suicidal or homicidal ideations. Concentration and memory is intact. Insight and judgment fair. DIAGNOSES: Unspecified depressive disorder. Unspecified anxiety disorder. Alcohol use disorder, severe. TREATMENT PLAN: At this point, we will continue to monitor this patient for continued resolution of homicidal thoughts and for continued elevation and stabilization of his mood. At this point, he is feeling better but we will continued to monitor him to make sure that he remains stable and to further adjust his medications as indicated.
[2019-12-04 16:04] VITALS: BP 135/85
[2019-12-04] MEDS: traZODone 50 MG TAB PO PRN (20:23)
[2019-12-04] MEDS: ARIPiprazole 2 MG TAB PO SCH (20:23)
[2019-12-05] MEDS: CYCLOBENZAPRINE 10MG TABLET PO PRN (06:04)
[2019-12-05] MEDS: traMADol 50 MG TAB PO PRN (06:04)
[2019-12-05 06:27] VITALS: BP 19/87
[2019-12-05] MEDS: SERTRALINE HCL 25 MG TABLET PO SCH (08:37)
--- NOTE | 2019-12-05 10:01 | MHDSPDOC ---
[facility] Discharge Summary Discharge Summary DATE OF ADMISSION: December 01, 2019 at 16:56 DATE OF DISCHARGE: 12/05/2019 Discharge Osvaldo Goldberg MRN: N/A Date of : N/A Date of Service: 12/05/2019 Diagnoses Unspecified depressive disorder. Unsure if substance related. Unspecified anxiety. Alcohol use disorder, severe. History of Present Illness The patient a 39-year-old man with a history of reported depression presents after reporting that he became increasingly more irritated and has started drinking alcohol again. He reported that he became more depressed, anxious and angry with others. He reported that he was frightened about this, had stopped his medications after being admitted in the past. He reported that he became more fatigued and had loss of interest, becoming easily irritated, wanting to fight various individuals and he brought himself in for treatment. Consultants Involved Hospitalist/PCP screening Treatment and Progress On The Unit The patient was admitted to the inpatient mental health unit, resumed on his home sertraline 25 mg and Abilify 2 mg that he had been on prior with positive results. He resolves quite quickly likely the result of a depressive disorder combined with alcohol. He demonstrates no behavioral problems, engages in treatment and is pleasant and complimentary on the unit. He makes good progress and is discharged in good order without any difficulties. Discharge Assessment 39-year-old man with likely history of depression compounded with alcohol creating irritability. He is treated with an appropriate regimen previously tried. He does not likely have bipolar disorder but simply untreated depression combined with alcohol creating irritability. The patient at the time of discharge did not meet criteria for involuntary admission/extension due to having a normal mental status exam, fair insight into the situation, They are engaged in the discharge process, as well as being friendly and amenable in behavioral control and havent been engaging in any observed concerning behavior or ideation recently. They decline voluntary extension/admission at this time and must be discharged in good shayy, as Im unable to make a case for holding the patient against their will. They may have historical risk factors of admissions and other interactions with psychiatry however, those are not modifiable from a clinical perspective. The patient will need to be discharged in good shayy. Mental Status Examination General: Well dressed with good hygiene Speech: Spontaneous and fluid Thought processes: Linear and logical MSK: Smooth and coordinated gait, no signs of tremors or involuntary orofacial movements Thought content: Future orientated Abstract reasoning, and computation: Intact Description of associations: Intact Description of abnormal or psychotic thoughts: Denies any suicidal or homicidal ideation. Denies any auditory or visual hallucinations. Does not appear to be responding to internal stimuli. Does not appear to be endorsing any bizarre or paranoid ideation. Judgment: fair Insight: fair Orientation: Alert and orientated 3 Cognition: Grossly normal Recent and remote memory: Intact Attention span and concentration: Intact Fund of knowledge: Adequate Mood: "okay" Affect: Euthymic with a full range Follow Up The social work team worked during the predischarge meeting in order to evaluate for further issues of lethality address them fully before discharge. They worked on safety planning with the patient's family members in order to ensure that the patient will have a safe and effective discharge. Time Spent The amount of time spent in the coordination of care for this patient was approximately 45 minutes. Thursday Vital Signs/I&Os Vital Signs Date Time Temp Pulse Resp B/P (MAP) Pulse Ox O2 Delivery O2 Flow Rate FiO2 12/05/19 06:34 18 Room Air 12/05/19 06:27 97.7 100 19/87 (65) 12/03/19 07:04 97 Medications Scheduled Aripiprazole (Abilify) 2 Mg Tablet, 2 MG PO QHS for mood for 7 Days, #7 Sertraline HCl (Sertraline HCl) 25 Mg Tablet, 25 MG PO DAILY for mood for 7 Days, #7 Allergies Coded Allergies: Penicillins (Verified Allergy, Intermediate, HIVES, 08/16/19) HIVES amoxicillin (Verified Allergy, Intermediate, hives, 08/16/19) PREM DICK DO December 05, 2019 10:01
[2019-12-05] MEDS ORDERED: ABIL1TAB13 PO (10:22)
[2019-12-05] MEDS ORDERED: SERT25TA21 PO (10:22)
--- NOTE | 2019-12-05 22:29 | MHIPN ---
DATE: 12/04/2019 The patient today states, "I'm doing good." He continues to deny that he had any suicidal intent or any homicidal intent. At this point, he really feels that getting back on his medications is really helping him feel better. MENTAL STATUS EXAM: This patient is alert, oriented times three, Eye contat is good. He is verbally spontaneous. There is no formal thought disorder noted. He says his mood is good and affect appears to be appropriate to mood. He is not psychotic or suicidal or homicidal. Concentration good. Memory intact. Insight and judgment is fair. DIAGNOSIS: Unspecified depressive disorder. Unspecified anxiety disorder. Alcohol use disorder, severe. TREATMENT PLAN: At this point, will continue to monitor the patient for continued elevation and stabilization of his mood and continued resolution of any suicidal or homicidal ideations. DAR
== END 2019-12-05 11:28 | disposition home or self-care (01) | DRG 754 ==
LOC: M ED 23:30 → M ED INP 12-01 16:56 → M PSY 12-01 17:37
PROVIDERS: ADMIT Psychiatry & Neurology Addiction Medicine; ATTEND Psychiatry & Neurology Addiction Medicine
DX: F32.9 Major depressive disorder, single episode, unspecified (principal); F41.9 Anxiety disorder, unspecified; F10.10 Alcohol abuse, uncomplicated; Z79.899 Other long term (current) drug therapy; Q79.60 Ehlers-Danlos syndrome, unspecified

== ENCOUNTER 2020-08-11 12:57 | Emergency (ER) | payer MEDICAID, OTHER ==
[~2020-08-11] VITALS: Ht 203.2 cm; Wt 75.0 kg
[~2020-08-11 12:57] MED LIST changes: -CLIN300C5; +CLIN300C6; +MIRT-62 PO; +QUET50TA3 PO; -QUET5TAB PO; -REME15TA PO; +SERT25TA21 PO; +TRAM50TA2 PO
[2020-08-11] MEDS ORDERED: diazePAM 10MG/2ML SYRINGE (J3360 PER 5MG) IV ONE (13:15)
[2020-08-11] MEDS ORDERED: KETOROLAC 30 MG/ML 1ML VIAL IV ONE (13:15)
--- NOTE | 2020-08-11 14:03 | REP ---
INDICATION: severe low back pain s/p sneeze. COMPARISON: None TECHNIQUE: helical scanning with 4 mm increments. Sagittal and coronal reconstructions. FINDINGS: CT cannot rule out an acute disc extrusion. The disc spaces are symmetric and relatively well maintained. Vertebral body height and alignment is within normal limits. At the L2-3 level there is increased soft tissue density in the left parasagittal posterior disc space suggestive of a left paracentral disc extrusion. This is poorly evaluated by CT. There is no evidence of a fracture. IMPRESSION: There is suggestive evidence of a left paracentral disc extrusion at the L2-3 level which is poorly evaluated with CT. MRI would be more sensitive in more informative. <Electronically signed by Kingsley Espinal > 08/11/20 1400
[2020-08-11] MEDS ORDERED: ROBA750T4 PO (14:35)
[2020-08-11] MEDS ORDERED: PRED10TA2 PO (14:35)
[2020-08-11] MEDS ORDERED: methocarbamoL 750 MG TAB PO ONE (15:00)
[2020-08-11] MEDS ORDERED: methylPREDNISolone 125MG 2ML VIAL IV ONE (15:00)
[2020-08-11 15:47] VITALS: BP 116/88
== END 2020-08-11 16:05 | disposition home or self-care (01) ==
LOC: M ED 12:57
DX: M51.26 Other intervertebral disc displacement, lumbar region (principal); F17.200 Nicotine dependence, unspecified, uncomplicated; Z88.0 Allergy status to penicillin; Z88.1 Allergy status to other antibiotic agents
CPT/HCPCS: 72131; 96374; 96375; 99284; J1885; J2930; J3360

== ENCOUNTER 2020-09-18 18:38 | Emergency (ER) | payer OTHER ==
[~2020-09-18] VITALS: Ht 203.2 cm; Wt 76.6 kg
[~2020-09-18 18:38] MED LIST changes: +PRED10TA2 PO; +ROBA750T4 PO
[2020-09-18 18:39] VITALS: BP 112/71
--- NOTE | 2020-09-18 19:19 | REP ---
INDICATION: swelling, eval for joint effusion vs patellar bursitis COMPARISON: None. TECHNIQUE: AP, lateral, bilateral oblique and sunrise views. FINDINGS: Lateral and sunrise views demonstrate significant prepatellar soft tissue swelling suggesting bursitis. The osseous structures are intact and without acute fracture or dislocation. No significant degenerative changes are appreciated. IMPRESSION: Prepatellar bursitis. <Electronically signed by Sony Lord > 09/18/20 [id number]
[2020-09-18 19:25] LABS: BASO # 0.1 10^3/uL (0.0-0.2); BASO % 1.3 % (0.0-1.0); EOS # 0.6 10^3/uL (0.0-0.5); EOS % 8.1 % (0.0-3.0); HEMATOCRIT 38.5 % (42.0-52.0); HEMOGLOBIN 12.9 g/dl (13.5-17.5); LYMPH # 2.5 10^3/uL (1.5-5.0); LYMPH % 36.4 % (24.0-44.0); MEAN CORPUSCULAR HEMOGLOBIN 31.1 pg (27.0-33.0); MEAN CORPUSCULAR HGB CONC 33.5 g/dl (32.0-36.5); MEAN CORPUSCULAR VOLUME 92.8 fl (80.0-96.0); MONO # 0.5 10^3/uL (0.0-0.8); MONO % 7.1 % (2.0-8.0); NEUTROPHILS # 3.3 10^3/uL (1.5-8.5); NEUTROPHILS % 46.8 % (36.0-66.0); PLATELET COUNT, AUTOMATED 206 10^3/uL (150-450); RED BLOOD COUNT 4.15 10^6/uL (4.30-6.10); WHITE BLOOD COUNT 6.9 10^3/uL (4.0-10.0)
[2020-09-18 19:55] LABS: ERYTHROCYTE SEDIMENTATION RATE 9 mm/hr (0-15)
[2020-09-18 19:56] LABS: BLOOD UREA NITROGEN 6 MG/DL (7-18); C REACTIVE PROTEIN QUANTITATIV 0.56 MG/DL (0.00-0.30); CALCIUM LEVEL 8.7 MG/DL (8.5-10.1); CARBON DIOXIDE LEVEL 31 MEQ/L (21-32); CHLORIDE LEVEL 106 MEQ/L (98-107); CREATININE FOR GFR 0.95 MG/DL (0.70-1.30); GLOMERULAR FILTRATION RATE > 60.0 (>60); GLUCOSE, FASTING 91 MG/DL (70-100); POTASSIUM SERUM 3.9 MEQ/L (3.5-5.1); SODIUM LEVEL 140 MEQ/L (136-145); URIC ACID 3.9 MG/DL (3.5-7.2)
== END 2020-09-18 20:24 | disposition home or self-care (01) ==
LOC: M ED 18:38
DX: M70.41 Prepatellar bursitis, right knee (principal); F33.9 Major depressive disorder, recurrent, unspecified; F41.9 Anxiety disorder, unspecified; Z88.0 Allergy status to penicillin; F17.210 Nicotine dependence, cigarettes, uncomplicated

== ENCOUNTER 2020-11-01 14:15 | Emergency (ER) | payer OTHER ==
[~2020-11-01] VITALS: Ht 203.2 cm; Wt 73.5 kg
--- NOTE | 2020-11-01 15:24 | REP ---
INDICATION: 20 pound metal box to face, pain and swelling. COMPARISON: None. TECHNIQUE: Axial CT images with multiplanar reformations. FINDINGS: There is a minimally, medially displaced right nasal bones fracture. There is a small a questionable irregularity of the outer cortex of the mandible at midline, without fracture. There is mucosal thickening at the floors of the maxillary sinuses, greater on the left. There appears to be a nondisplaced fracture of the lateral wall of the left maxillary sinus, the remainder of the paranasal sinuses are clear. Orbits are intact. Nasal septum near midline with rightward nasal spur. The patient is edentulous. IMPRESSION: Right nasal bone fracture. Nondisplaced fracture of the left maxillary sinus lateral wall. <Electronically signed by Timothy John > 11/01/20 [id number]
[2020-11-01] MEDS ORDERED: DOXY100C37 PO (15:45)
[2020-11-01 15:58] VITALS: BP 131/65
== END 2020-11-01 15:59 | disposition home or self-care (01) ==
LOC: M ED 14:15
DX: S02.2XXA Fracture of nasal bones, initial encounter for closed fracture (principal); S02.40DA Maxillary fracture, left side, initial encounter for closed fracture; W20.8XXA Other cause of strike by thrown, projected or falling object, initial encounter; F17.200 Nicotine dependence, unspecified, uncomplicated; Z88.0 Allergy status to penicillin; Z88.1 Allergy status to other antibiotic agents; Y92.009 Unspecified place in unspecified non-institutional (private) residence as the place of occurrence of the external cause; Y93.9 Activity, unspecified; Y99.9 Unspecified external cause status; Z79.899 Other long term (current) drug therapy

== ENCOUNTER 2020-12-08 20:56 | Emergency (ER) | payer OTHER ==
[~2020-12-08] VITALS: Ht 203.2 cm; Wt 72.9 kg
[~2020-12-08 20:56] MED LIST changes: +DOXY100C37 PO
[2020-12-08] MEDS ORDERED: TRAM50TA2 PO (21:08)
[2020-12-08] MEDS ORDERED: CYCL-707 PO (21:08)
[2020-12-08 21:22] LABS: BASO # 0.1 10^3/uL (0.0-0.2); BASO % 1.1 % (0.0-1.0); EOS # 1.3 10^3/uL (0.0-0.5); EOS % 14.7 % (0.0-3.0); HEMATOCRIT 37.4 % (42.0-52.0); HEMOGLOBIN 12.4 g/dl (13.5-17.5); LYMPH # 2.7 10^3/uL (1.5-5.0); LYMPH % 31.3 % (24.0-44.0); MEAN CORPUSCULAR HEMOGLOBIN 30.6 pg (27.0-33.0); MEAN CORPUSCULAR HGB CONC 33.2 g/dl (32.0-36.5); MEAN CORPUSCULAR VOLUME 92.3 fl (80.0-96.0); MONO # 0.5 10^3/uL (0.0-0.8); MONO % 6.3 % (2.0-8.0); NEUTROPHILS # 3.9 10^3/uL (1.5-8.5); NEUTROPHILS % 46.4 % (36.0-66.0); PLATELET COUNT, AUTOMATED 202 10^3/uL (150-450); RED BLOOD COUNT 4.05 10^6/uL (4.30-6.10); WHITE BLOOD COUNT 8.5 10^3/uL (4.0-10.0)
[2020-12-08 21:53] LABS: BLOOD UREA NITROGEN 7 MG/DL (7-18); CALCIUM LEVEL 8.9 MG/DL (8.5-10.1); CARBON DIOXIDE LEVEL 31 MEQ/L (21-32); CHLORIDE LEVEL 102 MEQ/L (98-107); CK-MB VALUE MASS 11.6 NG/ML (<3.6); CPK CREATINE PHOSPHOKINASE 718 U/L (39-308); CREATININE FOR GFR 0.92 MG/DL (0.70-1.30); GLOMERULAR FILTRATION RATE > 60.0 (>60); GLUCOSE, FASTING 92 MG/DL (70-100); MB/CK RELATIVE INDEX 1.62 (< OR =4); POTASSIUM SERUM 3.5 MEQ/L (3.5-5.1); SODIUM LEVEL 138 MEQ/L (136-145); TROPONIN I < 0.02 NG/ML (< 0.10)
[2020-12-08] MEDS ORDERED: ISOVUE-370 76% 100ML VIAL As Ordered ONE (23:25)
--- NOTE | 2020-12-08 23:31 | REPVR ---
PROCEDURE INFORMATION: Exam: XR Chest Exam date and time: 12/08/20 (9:29pm) Age: 40 years old Clinical indication: Chest pain TECHNIQUE: Imaging protocol: Portable CXR Views: 1 view COMPARISON: Chest films of 10/13/19 FINDINGS: Comparison is made with chest films done on 10/13/19. No focal infiltrates. No pneumothorax. Redemonstration of mild left apical pleural thickening. Nonspecific opacity remains at the left lung base (unchanged) -- perhaps scarring; perhaps pleural thickening; perhaps small chronic pleural effusion. IMPRESSION: No acute findings. In general, similar findings were noted in September 2019. Electronically signed by: Kanika Salinas On 12/08/2020 23:31:10 PM
--- NOTE | 2020-12-09 00:31 | REPVR ---
PROCEDURE INFORMATION: Exam: CTA Chest With Contrast Exam date and time: 12/08/2020 12:08 AM Age: 40 years old Clinical indication: Chest wall pain; Additional info: Thoracic aortic dissection protocol TECHNIQUE: Imaging protocol: Computed tomographic angiography of the chest with contrast. 3D rendering (Not supervised by radiologist): MIP and/or 3D reconstructed images were created by the technologist. Radiation optimization: All CT scans at this facility use at least one of these dose optimization techniques: automated exposure control; mA and/or kV adjustment per patient size (includes targeted exams where dose is matched to clinical indication); or iterative reconstruction. Contrast material: ISOVUE 370; Contrast volume: 75 ml; Contrast route: INTRAVENOUS (IV); COMPARISON: CT ANGIO CHEST 10/30/2017 5:54 AM FINDINGS: Pulmonary arteries: The main pulmonary artery measures 26 mm. Aorta: The ascending thoracic aorta measures 27 mm. No gross or obvious aortic dissection is noted. Lungs: Mild scattered fibro-atelectatic change in the anterior left upper lobe and apex and left lung base. There is some marginated bullous change in the left basal region which may reflect an area of sequestration. There is a large subpleural intercostal artery in the adjacent area which may extend to the area and question of associated draining vein. Calcified granuloma in the medial left upper lobe. Pleural spaces: Unremarkable. No pneumothorax. No pleural effusion. Heart: Unremarkable. No cardiomegaly. No pericardial effusion. Lymph nodes: Calcified anterior mediastinal nodes are noted just above the left hemidiaphragm. Bones/joints: Unremarkable. No acute fracture. Soft tissues: Unremarkable. IMPRESSION: 1. Mild scattered fibro-atelectatic change in the left lung with marginated area of bullous change in the left lung base which may reflect an area of sequestration. Findings are unchanged from 10/30/2017 2. Otherwise negative CTA chest. No gross or obvious aortic dissection is noted. Electronically signed by: Bebo Rowell On 12/09/2020 00:31:27 AM
[2020-12-09] MEDS ORDERED: CYCLOBENZAPRINE 10MG TABLET PO ONE (01:00)
[2020-12-09] MEDS ORDERED: KETOROLAC 30 MG/ML 1ML VIAL IV ONE (01:00)
[2020-12-09 03:13] LABS: CK-MB VALUE MASS 8.2 NG/ML (<3.6); CPK CREATINE PHOSPHOKINASE 556 U/L (39-308); MB/CK RELATIVE INDEX 1.47 (< OR =4); TROPONIN I < 0.02 NG/ML (< 0.10)
[2020-12-09] MEDS ORDERED: IBUP-1022 PO (03:24)
[2020-12-09] MEDS ORDERED: CYCL-707 PO (03:24)
[2020-12-09 03:34] VITALS: BP 105/48
--- NOTE | 2020-12-09 07:52 | ECGEPIP ---
[facility] - ED Test Date: 2020-12-08 Pat Name: JAVIER COOK Department: Room: - Gender: Male Clinical Lab Specialist: hc : 1980 Requested By: OCTAVIA WELLS Order Number: [id number] Reading MD: Jericho Avila Measurements Intervals [place] Rate: 59 P: 32 HI: 128 QRS: 66 QRSD: 116 T: 61 QT: 436 QTc: 431 Interpretive Statements Sinus bradycardia INCOMPLETE RIGHT BUNDLE BRANCH BLOCK BASELINE ARTIFACT AFFECTS INTERPRETATION SIMILAR TO 09/07/19 Electronically Signed on 12-09-2020 7:51:54 EDT by Jericho Avila
== END 2020-12-09 03:49 | disposition home or self-care (01) ==
LOC: M ED 20:56
DX: R07.89 Other chest pain (principal); R94.31 Abnormal electrocardiogram [ECG] [EKG]; Q79.60 Ehlers-Danlos syndrome, unspecified; Z88.0 Allergy status to penicillin; Z88.1 Allergy status to other antibiotic agents; Z79.899 Other long term (current) drug therapy
CPT/HCPCS: 71045; 71275; 80048; 82550; 82553; 85025; 93005; 93041; 94760; 96374; 99285; J1885; Q9967

== ENCOUNTER → 2020-12-19 | Outpatient (CLI) | payer OTHER ==
[~2020-12-19] MED LIST changes: +IBUP-1022 PO
--- NOTE | 2020-12-19 16:38 | REP ---
INDICATION: PAIN IN LEFT HIP COMPARISON: None. TECHNIQUE: AP and frog-lateral views of the left hip FINDINGS: Osseous structures, joint spaces, and surrounding soft tissues are essentially age-appropriate. No overt osteoarthritic or inflammatory arthritic changes are appreciated. No evidence for acute or healed injury. No obvious congenital abnormality. IMPRESSION: Relatively age-appropriate left hip radiographs. <Electronically signed by Sony Lord > 12/19/20 [id number]
== END ==
LOC: M RAD 16:08
PROVIDERS: ATTEND Nurse Practitioner
DX: M25.552 Pain in left hip (principal)

== ENCOUNTER → 2020-12-25 | Outpatient (CLI) | payer OTHER ==
--- NOTE | 2020-12-25 12:42 | REPVR ---
PROCEDURE INFORMATION: Exam: MR Head Without Contrast Exam date and time: 12/25/2020 9:31 AM Age: 40 years old Clinical indication: Other: HX of multiple concussion, memory loss TECHNIQUE: Imaging protocol: MR of the head without contrast. COMPARISON: CT Maxilofacial w/out contrast 11/01/2020 3:03 PM FINDINGS: Brain: There is no extra-axial collection or intra-axial mass. Normal parenchymal signal is preserved. There is no diffusion restriction. Cerebral ventricles: Normal. No ventriculomegaly. Bones/joints: Unremarkable. Paranasal sinuses: There is mild inferior frontal, ethmoid and maxillary sinus mucosal thickening. There is a mucous retention cyst within the left maxillary sinus. Mastoid air cells: Normal as visualized. No mastoid effusion. Orbital cavity: Unremarkable. Soft tissues: Unremarkable. IMPRESSION: No acute findings. Electronically signed by: Jennie Rosado On 12/25/2020 12:42:20 PM
== END ==
LOC: M PLARAD 08:30
PROVIDERS: ATTEND Physician Assistant
DX: G31.84 Mild cognitive impairment of uncertain or unknown etiology (principal); R27.9 Unspecified lack of coordination; R51.9 Headache, unspecified

== ENCOUNTER 2021-03-18 13:15 | Emergency (ER) | payer OTHER ==
[~2021-03-18] VITALS: Ht 203.2 cm; Wt 69.4 kg
[~2021-03-18 13:15] MED LIST changes: -DOXY100C37 PO; +DOXY1CAP62 PO; -QUET50TA3 PO; +QUET50TA4 PO
[2021-03-18 14:06] LABS: HEMATOCRIT 38.8 % (42.0-52.0); HEMOGLOBIN 13.1 g/dl (13.5-17.5); MEAN CORPUSCULAR HEMOGLOBIN 31.3 pg (27.0-33.0); MEAN CORPUSCULAR HGB CONC 33.8 g/dl (32.0-36.5); MEAN CORPUSCULAR VOLUME 92.6 fl (80.0-96.0); PLATELET COUNT, AUTOMATED 215 10^3/uL (150-450); RED BLOOD COUNT 4.19 10^6/uL (4.30-6.10); WHITE BLOOD COUNT 8.7 10^3/uL (4.0-10.0)
[2021-03-18 14:36] LABS: AMPHETAMINES LEVEL URINE NEGATIVE (NEGATIVE); BARBITURATES URINE NEGATIVE (NEGATIVE); BENZODIAZEPINES URINE NEGATIVE (NEGATIVE); CANNABINOIDS URINE POSITIVE (NEGATIVE); COCAINE METABOLITE URINE NEGATIVE (NEGATIVE); METHADONE URINE NEGATIVE (NEGATIVE); OPIATES URINE NEGATIVE (NEGATIVE); PHENCYCLIDINE URINE NEGATIVE (NEGATIVE)
[2021-03-18 14:43] LABS: ACETAMINOPHEN LEVEL < 2.0 UG/ML (10.0-30.0); ALBUMIN 3.8 GM/DL (3.2-5.2); ALT/SGPT 31 U/L (12-78); BILIRUBIN,DIRECT 0.2 MG/DL (0.0-0.2); BILIRUBIN,TOTAL 0.7 MG/DL (0.2-1.0); BLOOD UREA NITROGEN 4 MG/DL (7-18); CALCIUM LEVEL 9.3 MG/DL (8.5-10.1); CARBON DIOXIDE LEVEL 30 MEQ/L (21-32); CHLORIDE LEVEL 105 MEQ/L (98-107); CREATININE FOR GFR 0.77 MG/DL (0.70-1.30); ETHYL ALCOHOL (ETHANOL) < 0.003 % (0.000-0.010); GLOMERULAR FILTRATION RATE > 60.0 (>60); GLUCOSE, FASTING 84 MG/DL (70-100); POTASSIUM SERUM 4.2 MEQ/L (3.5-5.1); SODIUM LEVEL 139 MEQ/L (136-145); TOTAL PROTEIN 6.6 GM/DL (6.4-8.2)
[2021-03-18] MEDS ORDERED: LORazepam 1 MG TAB PO STA (14:59)
--- NOTE | 2021-03-18 18:21 | MHIPNPDOC ---
[facility] Progress Note Progress Note DATE OF SERVICE: 03/18/21 Communicated with PSA. Patient is a 41 y/o man with multiple [facility] admissions, last November 2019, has hx of bipolar, depression and alcohol use. Today self presents with thoughts of wanting to kill, harm others, with elevated affect,hyperverbal, reportedly not on medications and feels "unheard" by [facility]. P atient meets admission criteria due to HI in context of possible manic or hypomanic episode, with increased irritability. Vital Signs Vital Signs Date Time Temp Pulse Resp B/P (MAP) Pulse Ox O2 Delivery O2 Flow Rate FiO2 03/18/21 13:16 98.4 55 18 105/53 (70) 99 Room Air Laboratory Data 24H Labs Laboratory Tests 2 03/18/21 13:54: Nucleated Red Blood Cells % (auto) 0.0, Anion Gap 4L, Glomerular Filtration Rate > 60.0, Calcium Level 9.3, Total Bilirubin 0.7, Direct Bilirubin 0.2, Aspartate Amino Transf (AST/SGOT) 20, Alanine Aminotransferase (ALT/SGPT) 31, Alkaline Phosphatase 100, Total Protein 6.6, Albumin 3.8, Albumin/Globulin Ratio 1.4, Thyroid Stimulating Hormone (TSH) 1.330, Salicylates Level 3.0L, Urine Opiates Screen NEGATIVE, Urine Methadone Screen NEGATIVE, Acetaminophen Level < 2.0L, Urine Barbiturates Screen NEGATIVE, Urine Phencyclidine Screen NEGATIVE, Urine Amphetamines Screen NEGATIVE, Urine Benzodiazepines Screen NEGATIVE, Urine Cocaine Metabolite Screen NEGATIVE, Urine Cannabinoids Screen POSITIVEH, Ethyl Alcohol Level < 0.003 CBC/BMP Laboratory Tests 03/18/21 13:54 Current Medications Current Medications Medications (Trade) Dose Ordered Sig/Marty Route PRN Reason Start Time Stop Time Status Last Admin Dose Admin Lorazepam (Ativan) 1 mg STAT STAT PO 03/18/21 14:59 03/18/21 15:00 DC 03/18/21 15:43 Allergies Coded Allergies: Penicillins (Verified Allergy, Intermediate, HIVES, 08/16/19) HIVES amoxicillin (Verified Allergy, Intermediate, hives, 08/16/19) MARY CUNNINGHAM MD Mar 18, 2021 18:21
[2021-03-18 22:12] LABS: RSV AMPLIFICATION NEGATIVE (NEGATIVE)
[2021-03-18] MEDS ORDERED: OLANZapine ORAL DISINTEGRATING TAB 5MG PO ONE (22:35)
[2021-03-18] MEDS ORDERED: LORazepam 1 MG TAB PO ONE (22:35)
[2021-03-19] MEDS ORDERED: LORazepam 2 MG TAB PO STA (03:40)
[2021-03-19 04:03] VITALS: BP 102/58
--- NOTE | 2021-03-19 15:49 | ECGEPIP ---
[facility] - ED Test Date: 2021-03-18 Pat Name: JAVIER COOK Department: Room: - Gender: Male Negative Notcher: SAMSONCHRISWOODY : 1980 Requested By: Mirna Garcia Order Number: [id number] Reading MD: Radha Kaufman Measurements Intervals [place] Rate: 50 P: 72 MI: 158 QRS: 56 QRSD: 120 T: 44 QT: 482 QTc: 439 Interpretive Statements Sinus bradycardia with marked sinus arrhythmia RSR' or QR pattern in V1 suggests right ventricular conduction delay decreased rate 12/08/20 Electronically Signed on 03-19-2021 15:49:02 EDT by Radha Kaufman
== END 2021-03-19 04:05 ==
LOC: M ED 13:15
DX: F29 Unspecified psychosis not due to a substance or known physiological condition (principal); F33.9 Major depressive disorder, recurrent, unspecified; R45.850 Homicidal ideations; F41.9 Anxiety disorder, unspecified; Z88.0 Allergy status to penicillin; Z88.1 Allergy status to other antibiotic agents

== ENCOUNTER → 2022-03-03 | Outpatient (CLI) | payer OTHER ==
[~2022-03-03] MED LIST changes: +ARIP10TA32; +CLIN-250; -CLIN300C6; +DIVA250T67; +DOXY-443 PO; -DOXY1CAP62 PO; +SERT50TA29
== END ==
LOC: M WUC 09:39
PROVIDERS: ATTEND Internal Medicine
DX: M54.9 Dorsalgia, unspecified (principal)

== ENCOUNTER → 2022-12-26 | Outpatient (CLI) | payer OTHER | LOC: M WUC 12:09 | PROVIDERS: ATTEND Physician Assistant | DX: R05.9 Cough, unspecified (principal); J20.9 Acute bronchitis, unspecified ==

== ENCOUNTER 2023-12-25 21:14 | Emergency (ER) | payer OTHER ==
[~2023-12-25] VITALS: Ht 203.2 cm; Wt 74.5 kg
[~2023-12-25 21:14] MED LIST changes: +DOXY-323 PO; -DOXY-443 PO; -MIRT-62 PO; +MIRT-88 PO
[2023-12-25 22:59] VITALS: BP 131/72; TEMP 97.4; O2SAT 100
== END 2023-12-25 23:01 | disposition home or self-care (01) ==
LOC: M ED 21:14
DX: S63.521A Sprain of radiocarpal joint of right wrist, initial encounter (principal); W01.0XXA Fall on same level from slipping, tripping and stumbling without subsequent striking against object, initial encounter; F17.200 Nicotine dependence, unspecified, uncomplicated; F10.10 Alcohol abuse, uncomplicated; F31.9 Bipolar disorder, unspecified; Y92.009 Unspecified place in unspecified non-institutional (private) residence as the place of occurrence of the external cause; Y93.89 Activity, other specified; Y99.9 Unspecified external cause status; Z88.0 Allergy status to penicillin; Z88.1 Allergy status to other antibiotic agents; Z79.899 Other long term (current) drug therapy

== ENCOUNTER → 2024-01-08 | Outpatient (CLI) | payer OTHER | LOC: M SOG 15:50 | PROVIDERS: ATTEND Physician Assistant | DX: M25.531 Pain in right wrist (principal) ==

== ENCOUNTER → 2024-02-11 | Outpatient (CLI) | payer OTHER ==
[2024-02-11 10:50] LABS: HEMOGLOBIN A1c 4.7 % (4.0-6.0)
== END ==
LOC: M WUC 08:16
PROVIDERS: ATTEND Physician Assistant
DX: R73.01 Impaired fasting glucose (principal); R06.02 Shortness of breath; R06.2 Wheezing

== ENCOUNTER 2024-02-18 11:55 | Inpatient (IN) | payer OTHER ==
[2024-02-18] VITALS (7 sets, daily range): BP systolic 103–135; BP diastolic 57–77; TEMP 98.1–98.2; O2SAT 99–100
[~2024-02-18] VITALS: Ht 200.7 cm; Wt 71.2 kg
[2024-02-18 12:35] LABS: BASO # 0.1 10^3/uL (0.0-0.2); BASO % 0.9 % (0.0-1.0); EOS # 0.3 10^3/uL (0.0-0.5); EOS % 4.3 % (0.0-3.0); HEMOGLOBIN 13.3 g/dl (13.5-17.5); LYMPH # 2.6 10^3/uL (1.5-5.0); LYMPH % 37.9 % (24.0-44.0); MEAN CORPUSCULAR VOLUME 91.6 fl (80.0-96.0); MONO # 0.5 10^3/uL (0.0-0.8); MONO % 7.7 % (2.0-8.0); NEUTROPHILS # 3.4 10^3/uL (1.5-8.5); NEUTROPHILS % 49.1 % (36.0-66.0); PLATELET COUNT, AUTOMATED 189 10^3/uL (150-450); RED BLOOD COUNT 4.15 10^6/uL (4.30-6.10)
[2024-02-18] MEDS: NS 1,000 ML IV ONE (14:14)
[2024-02-18 14:23] LABS: CK-MB VALUE MASS 1.5 NG/ML (<3.6)
[2024-02-18 14:25] LABS: MB/CK RELATIVE INDEX 1.5 (< OR =4)
[2024-02-18 14:32] LABS: ALBUMIN 3.7 G/DL (3.2-5.2); ALKALINE PHOSPHATASE 80 U/L (46-116); ALT/SGPT 43 U/L (7.0-40); AST/SGOT 27 U/L (<34); BILIRUBIN,DIRECT 0.5 MG/DL (<0.4); BILIRUBIN,TOTAL 1.3 MG/DL (0.3-1.2); BLOOD UREA NITROGEN 6 MG/DL (9-23); CALCIUM LEVEL 8.8 MG/DL (8.5-10.1); CARBON DIOXIDE LEVEL 26 MMOL/L (20-31); CHLORIDE LEVEL 108 MMOL/L (98-107); CPK CREATINE PHOSPHOKINASE 87 U/L (46-171); CREATININE FOR GFR 0.73 MG/DL (0.70-1.30); FREE T4 1.16 NG/DL (0.89-1.76); GLOMERULAR FILTRATION RATE > 60.0 (>60); GLUCOSE, FASTING 82 MG/DL (60-100); MB/CK RELATIVE INDEX 1.14 (< OR =4); POTASSIUM SERUM 3.6 MMOL/L (3.5-5.1); SODIUM LEVEL 138 MMOL/L (136-145); TOTAL PROTEIN 5.9 G/DL (5.7-8.2)
[2024-02-18 15:33] LABS: ERYTHROCYTE SEDIMENTATION RATE 2 mm/hr (0-15)
[2024-02-18 16:13] LABS: C REACTIVE PROTEIN QUANTITATIV < 0.40 MG/DL (<1.0)
[2024-02-18 16:21] LABS: PROCALCITONIN <0.04 ng/ml
[2024-02-18] MEDS ORDERED: ATROPINE SULF 1MG/10ML SYRINGE IV PRN (16:35)
[2024-02-18] MEDS: cefTRIAXone SOD 2 GM in D5W MINI-BAG PLUS 50 ML IV ONE (16:38)
[2024-02-18] MEDS ORDERED: HOME MED LIST COMPLETE! XX SCH (17:25)
[2024-02-18] MEDS ORDERED: DOBUTamine HCL 500,000 MCG in IV 1 EA IV SCH (21:55)
[2024-02-18] MEDS: DOBUTamine HCL 500,000 MCG in IV 1 EA IV SCH (22:36)
[2024-02-19] VITALS (31 sets, daily range): BP systolic 106–158; BP diastolic 55–87; TEMP 97.8–98.4; O2SAT 98–100
[2024-02-19] MEDS: ENOXAPARIN 40MG/0.4ML SYRINGE (J1650 PER 10MG) SC SCH (08:23)
[2024-02-19] MEDS: cefTRIAXone SOD 2 GM in D5W MINI-BAG PLUS 50 ML IV SCH (17:03)
[2024-02-20] VITALS (12 sets, daily range): BP systolic 104–135; BP diastolic 57–85; TEMP 97.2–97.7; O2SAT 98–99
[2024-02-20] MEDS ORDERED: ISOVUE-370 76% 100ML VIAL As Ordered ONE (16:18)
[2024-02-21] VITALS: BP 104/63; TEMP 98.4; O2SAT 99
[2024-02-21 04:03] VITALS: BP 104/61; TEMP 98.8; O2SAT 100
[2024-02-21 05:06] LABS: BASO # 0.1 10^3/uL (0.0-0.2); EOS # 0.7 10^3/uL (0.0-0.5); EOS % 8.3 % (0.0-3.0); HEMATOCRIT 44.7 % (42.0-52.0); LYMPH # 2.7 10^3/uL (1.5-5.0); LYMPH % 34.5 % (24.0-44.0); MEAN CORPUSCULAR HEMOGLOBIN 31.3 pg (27.0-33.0); MEAN CORPUSCULAR HGB CONC 33.6 g/dl (32.0-36.5); MEAN CORPUSCULAR VOLUME 93.3 fl (80.0-96.0); MONO # 0.6 10^3/uL (0.0-0.8); NEUTROPHILS # 3.8 10^3/uL (1.5-8.5); NEUTROPHILS % 48.1 % (36.0-66.0); PLATELET COUNT, AUTOMATED 200 10^3/uL (150-450); RED BLOOD COUNT 4.79 10^6/uL (4.30-6.10); WHITE BLOOD COUNT 7.9 10^3/uL (4.0-10.0)
[2024-02-21 05:35] LABS: BLOOD UREA NITROGEN 8 MG/DL (9-23); CALCIUM LEVEL 9.5 MG/DL (8.5-10.1); CARBON DIOXIDE LEVEL 31 MMOL/L (20-31); CHLORIDE LEVEL 105 MMOL/L (98-107); CREATININE FOR GFR 0.75 MG/DL (0.70-1.30); GLOMERULAR FILTRATION RATE > 60.0 (>60); GLUCOSE, FASTING 85 MG/DL (60-100); MAGNESIUM LEVEL 1.9 MG/DL (1.8-2.4); POTASSIUM SERUM 4.8 MMOL/L (3.5-5.1); SODIUM LEVEL 140 MMOL/L (136-145)
[2024-02-21 08:00] VITALS: BP 115/74; TEMP 98.2; O2SAT 98
[2024-02-21] MEDS ORDERED: DOXY-440 PO (10:07)
[2024-02-23 20:32] LABS: LYME TOTAL ANTIBODY CIA <= 0.90 Index (<=0.90)
== END 2024-02-21 10:56 | disposition home or self-care (01) | DRG 724 ==
LOC: M ED 11:55 → M ED INP 16:35 → M ICU 17:36
PROVIDERS: ADMIT Internal Medicine Pulmonary Disease; ATTEND Preventive Medicine Undersea and Hyperbaric Medicine
DX: A69.20 Lyme disease, unspecified (principal); B33.20 Viral carditis, unspecified; Z88.0 Allergy status to penicillin; F17.200 Nicotine dependence, unspecified, uncomplicated; F32.A Depression, unspecified

== ENCOUNTER 2024-03-09 11:59 | Emergency (ER) | payer OTHER ==
[~2024-03-09] VITALS: Ht 200.7 cm; Wt 74.7 kg
[~2024-03-09 11:59] MED LIST changes: +DOXY-440 PO
[2024-03-09 12:43] LABS: BASO # 0.1 10^3/uL (0.0-0.2); BASO % 1.2 % (0.0-1.0); EOS # 0.6 10^3/uL (0.0-0.5); EOS % 7.2 % (0.0-3.0); HEMATOCRIT 38.1 % (42.0-52.0); LYMPH # 2.5 10^3/uL (1.5-5.0); LYMPH % 29.4 % (24.0-44.0); MEAN CORPUSCULAR HEMOGLOBIN 31.1 pg (27.0-33.0); MEAN CORPUSCULAR HGB CONC 34.1 g/dl (32.0-36.5); MEAN CORPUSCULAR VOLUME 91.1 fl (80.0-96.0); MONO # 0.5 10^3/uL (0.0-0.8); MONO % 6.1 % (2.0-8.0); NEUTROPHILS # 4.8 10^3/uL (1.5-8.5); PLATELET COUNT, AUTOMATED 245 10^3/uL (150-450); RED BLOOD COUNT 4.18 10^6/uL (4.30-6.10); WHITE BLOOD COUNT 8.6 10^3/uL (4.0-10.0)
[2024-03-09 12:59] LABS: CK-MB VALUE MASS 4.9 NG/ML (<3.6); LIPASE 63 U/L (12-53)
[2024-03-09 13:02] LABS: ALKALINE PHOSPHATASE 88 U/L (46-116); ALT/SGPT 42 U/L (7.0-40); AST/SGOT 31 U/L (<34); BILIRUBIN,DIRECT 0.1 MG/DL (<0.4); BILIRUBIN,TOTAL 0.4 MG/DL (0.3-1.2); BLOOD UREA NITROGEN 18 MG/DL (9-23); CALCIUM LEVEL 9.3 MG/DL (8.5-10.1); CARBON DIOXIDE LEVEL 29 MMOL/L (20-31); CHLORIDE LEVEL 105 MMOL/L (98-107); CPK CREATINE PHOSPHOKINASE 226 U/L (46-171); CREATININE FOR GFR 0.63 MG/DL (0.70-1.30); GLOMERULAR FILTRATION RATE > 60.0 (>60); GLUCOSE, FASTING 101 MG/DL (60-100); MB/CK RELATIVE INDEX 2.16 (< OR =4); POTASSIUM SERUM 3.9 MMOL/L (3.5-5.1); SODIUM LEVEL 138 MMOL/L (136-145); TOTAL PROTEIN 6.8 G/DL (5.7-8.2)
[2024-03-09 13:03] LABS: FREE T4 1.07 NG/DL (0.89-1.76); THYROID STIMULATING HORMONE 1.012 uIU/ML (0.55-4.78)
[2024-03-09] MEDS ORDERED: ISOVUE-370 76% 100ML VIAL As Ordered ONE (13:28)
[2024-03-09 14:15] LABS: CK-MB VALUE MASS 4.5 NG/ML (<3.6)
[2024-03-09 14:23] LABS: MB/CK RELATIVE INDEX 2.06 (< OR =4)
[2024-03-09 14:48] VITALS: BP 119/63; TEMP 98.1; O2SAT 98
== END 2024-03-09 14:52 | disposition home or self-care (01) ==
LOC: EDBD 11:59 → M ED 11:59
DX: R07.9 Chest pain, unspecified (principal); R09.1 Pleurisy; K74.60 Unspecified cirrhosis of liver; E55.9 Vitamin D deficiency, unspecified; F12.10 Cannabis abuse, uncomplicated; F17.200 Nicotine dependence, unspecified, uncomplicated; F31.9 Bipolar disorder, unspecified; F41.9 Anxiety disorder, unspecified; F32.A Depression, unspecified; Z88.0 Allergy status to penicillin; Z88.1 Allergy status to other antibiotic agents
CPT/HCPCS: 36415; 71045; 71275; 80048; 80076; 82550; 82553; 83690; 83880; 84439; 84443; 84484; 85025; 93005; 93041; 94760; 99285; Q9967

== ENCOUNTER 2024-06-19 12:57 | Emergency (ER) | payer OTHER ==
[~2024-06-19] VITALS: Ht 200.7 cm; Wt 99.3 kg
[~2024-06-19 12:57] MED LIST changes: -ARIP10TA32; +ARIP10TA63; -CYCL5TAB PO; +CYCL5TAB4 PO; -DOXY-323 PO; +DOXY-441 PO
[2024-06-19 13:00] VITALS: BP 127/59; TEMP 99.3; O2SAT 99
[2024-06-19] MEDS ORDERED: BACL10TA2 (13:09)
[2024-06-19] MEDS ORDERED: MELO15TA28 (13:09)
[2024-06-19] MEDS: diazePAM 5MG TABLET PO ONE ×2 (14:40→16:10)
[2024-06-19] MEDS: LIDOCAINE 5% (LIDODERM) PATCH TD ONE (14:40)
[2024-06-19] MEDS: KETOROLAC 60MG 2ML VIAL IM ONE (14:40)
[2024-06-19] MEDS ORDERED: BACL10TA2 PO (16:10)
[2024-06-19] MEDS ORDERED: MELO15TA28 PO (16:10)
[2024-06-19] MEDS ORDERED: MEDR4PAK PO (18:17)
== END 2024-06-19 16:39 | disposition home or self-care (01) ==
LOC: M ED 12:57
DX: R07.9 Chest pain, unspecified (principal); M25.512 Pain in left shoulder; M51.360 Other intervertebral disc degeneration, lumbar region with discogenic back pain only; K74.60 Unspecified cirrhosis of liver; I70.0 Atherosclerosis of aorta; R00.1 Bradycardia, unspecified; M25.78 Osteophyte, vertebrae; Z88.0 Allergy status to penicillin; Z88.1 Allergy status to other antibiotic agents; Z79.899 Other long term (current) drug therapy
CPT/HCPCS: 71045; 72110; 93005; 96372; 99284; J1885

== ENCOUNTER 2024-08-07 05:06 | Emergency (ER) | payer OTHER ==
[~2024-08-07] VITALS: Ht 203.2 cm; Wt 81.6 kg
[~2024-08-07 05:06] MED LIST changes: +BACL10TA2; +BACL10TA2 PO; +MELO15TA28; +MELO15TA28 PO
[2024-08-07] MEDS ORDERED: PRED10TA2 (05:16)
[2024-08-07] MEDS ORDERED: SERO1TAB PO (05:16)
[2024-08-07] MEDS: NAPROXEN 250 MG TAB PO ONE (08:02)
[2024-08-07] MEDS ORDERED: NAPR-837 PO (08:35)
[2024-08-07 08:50] VITALS: BP 117/63; TEMP 97.6; O2SAT 96
== END 2024-08-07 08:52 | disposition home or self-care (01) ==
LOC: M ED 05:06 → EDBD 05:06 → M ED 08:52
DX: M79.604 Pain in right leg (principal); M79.605 Pain in left leg; K74.60 Unspecified cirrhosis of liver; E55.9 Vitamin D deficiency, unspecified; F41.9 Anxiety disorder, unspecified; Z88.0 Allergy status to penicillin; Z88.1 Allergy status to other antibiotic agents; Z79.52 Long term (current) use of systemic steroids; Z79.1 Long term (current) use of non-steroidal anti-inflammatories (NSAID); Z79.899 Other long term (current) drug therapy

== ENCOUNTER → 2024-08-31 | Outpatient (CLI) | payer OTHER ==
[~2024-08-31] MED LIST changes: +PRED10TA2; +SERO1TAB PO
== END ==
LOC: M OUTALCOH 08:06
PROVIDERS: ATTEND Psychiatry & Neurology Psychiatry
DX: F10.10 Alcohol abuse, uncomplicated (principal)

== ENCOUNTER 2025-04-21 22:23 | Emergency (ER) | payer OTHER ==
[~2025-04-21] VITALS: Ht 203.2 cm; Wt 70.0 kg
[~2025-04-21 22:23] MED LIST changes: -IBUP-1022 PO; +IBUP600T42 PO
[2025-04-21 22:25] VITALS: BP 122/73; TEMP 97.6; O2SAT 100
== END 2025-04-22 | disposition left against medical advice (07) ==
LOC: M ED 22:23
DX: Z53.21 Procedure and treatment not carried out due to patient leaving prior to being seen by health care provider (principal)

== ENCOUNTER 2025-04-27 11:58 | Emergency (ER) | payer OTHER ==
[~2025-04-27] VITALS: Ht 203.2 cm; Wt 77.8 kg
[2025-04-27] MEDS ORDERED: METH-1165 (12:09)
[2025-04-27 12:55] VITALS: TEMP 98
[2025-04-27 13:55] VITALS: BP 113/71; O2SAT 97
== END 2025-04-27 14:09 | disposition home or self-care (01) ==
LOC: M ED 11:58
DX: S90.31XA Contusion of right foot, initial encounter (principal); X58.XXXA Exposure to other specified factors, initial encounter; I95.9 Hypotension, unspecified; M54.50 Low back pain, unspecified; F41.9 Anxiety disorder, unspecified; F31.9 Bipolar disorder, unspecified; E55.9 Vitamin D deficiency, unspecified; F10.10 Alcohol abuse, uncomplicated; F17.200 Nicotine dependence, unspecified, uncomplicated; Z88.0 Allergy status to penicillin; Z88.1 Allergy status to other antibiotic agents; Z79.899 Other long term (current) drug therapy; Z79.52 Long term (current) use of systemic steroids; Y92.9 Unspecified place or not applicable; Y93.9 Activity, unspecified; Y99.9 Unspecified external cause status

== ENCOUNTER → 2025-06-12 | Outpatient (CLI) | payer OTHER ==
[~2025-06-12] MED LIST changes: +METH-1165
== END ==
LOC: M PLAIMG 07:40
PROVIDERS: ATTEND Pain Medicine Interventional Pain Medicine
DX: M54.16 Radiculopathy, lumbar region (principal); M54.59 Other low back pain